=== PATIENT | female | born 1955 | race Caucasian/White ===

== ENCOUNTER 2024-01-30 13:11 | Emergency (ER) | payer MEDICARE ==
[2024-01-30] VITALS (10 sets, daily range): BP systolic 91–127; BP diastolic 55–73
[~2024-01-30] VITALS: Ht 154.9 cm; Wt 50.0 kg
[~2024-01-30 13:11] MED LIST: ALENDRONATE70 MG PO; BONIVA150 MG OR; BONIVA150 MG PO; BUPROPION150 MG PO; ENBREL50 MG/ML SC; ESTRADIOL1 MG PO; FISH OIL1000 MG PO; LORTAB 1010 MG PO; MEDROXYPROGESTER5 MG PO; METHOTREXATE2.5 MG OR; PREMARIN0.3 MG PO; PROVERA5 MG OR; PROVERA5 MG PO; RASUVO15 MG/0.3 SC; SUPER BIOTIN5000 MCG PO; VITAMIN D31000 UNI1 PO
[2024-01-30] MEDS ORDERED: SODIUM CHLORIDE 0.9% 1,000 ML IV ONE (13:45)
[2024-01-30 13:50] LABS: BASO% 0.4 % (0-3); EOS% 1.5 % (0-8); HEMOGLOBIN 11.7 g/dl (12.0-16.0); IMMATURE GRANULOCYTES 0.1 % (0.0-5.0); LYMPH% 26.5 % (15-41); MEAN CELL VOLUME 99.2 fL CALC (80.0-100.0); MEAN CORPUSCULAR HGB 33.1 pG CALC (26.0-32.0); MEAN CORPUSCULAR HGB CONC 33.4 g/dL CAL (32.0-36.0); MONO% 8.2 % (2-13); NEUT# 4.71 thou/uL (2.00-7.15); NEUT% 63.3 % (42-76); RED BLOOD COUNT 3.53 mill/uL (4.20-5.60); RED CELL DISTRI WIDTH 14.3 % (11.5-15.5)
[2024-01-30 14:08] LABS: ALKALINE PHOSPHATASE 40 u/l (38-126); ANION GAP 8 (6-22 (CALC)); BILIRUBIN, TOTAL 0.5 mg/dL (0.02-1.3); BUN 11 mg/dL (8-23); BUN/CREATININE RATIO 15 (12-20 (CALC)); CARBON DIOXIDE 22 mmol/l (22-30); CHLORIDE 110 mmol/l (95-108); CREATININE 0.7 mg/dL (0.5-1.0); ESTIMATED GFR 94 ML/MIN (>=90 (CALC)); ETHYL ALCOHOL 0 mg/dl (0-30); MAGNESIUM 2.1 mg/dL (1.6-2.3); POTASSIUM 3.9 mmol/l (3.5-5.1); SGOT/AST 21 u/l (9-36); SODIUM 136 mmol/l (137-146); TOTAL PROTEIN 6.4 g/dL (6.3-8.2)
[2024-01-30] MEDS ORDERED: METHOTREXATE2.5 MG PO (15:38)
[2024-01-30] MEDS ORDERED: HALCION0.25 MG PO (15:38)
[2024-01-30 15:48] LABS: URINE BILIRUBIN - DIPSTICK Negative (NEGATIVE); URINE BLOOD DIPSTICK Trace-lysed (NEGATIVE); URINE GLUCOSE - DIPSTICK Negative (NEGATIVE); URINE KETONE Negative (NEGATIVE); URINE LEUK ESTERASE Negative (NEGATIVE); URINE NITRITE - DIPSTICK Negative (Negative); URINE PROTEIN - DIPSTICK Negative (NEG-TRACE); URINE UROBILINOGEN - DIPSTICK 0.2 E.U./dL (0.2)
[2024-01-30 15:53] LABS: URINE COLOR Yellow
== END 2024-01-30 16:25 | disposition left against medical advice (07) ==
LOC: ED 13:11
PROVIDERS: Nurse Practitioner
DX: R53.1 Weakness (principal); R40.0 Somnolence; I95.9 Hypotension, unspecified; D49.6 Neoplasm of unspecified behavior of brain; M06.9 Rheumatoid arthritis, unspecified; F32.A Depression, unspecified; Z53.29 Procedure and treatment not carried out because of patient's decision for other reasons